=== PATIENT | female | born 1980 | race American Indian/Alaskan Native ===

== ENCOUNTER 2017-01-20 08:46 | Emergency (ER) | payer MEDICAID ==
[2017-01-20 09:10] VITALS: BP 121/77
--- NOTE | 2017-01-20 09:49 | Emergency Department Report ---
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 PT states she noticed a bug bite to her chest this morning and she felt "yucky" so she called her job to alert them of the bug bite and she was told to go to the ED for evaluation. PT denies cp, sob, swelling, n/v. PT states she just wants to get checked and she needs a work note for today. MD Complaint: spider bite Onset/Timin -: Gradual, days(s) Location: chest Severity scale (0 -10): 3 Consistency: constant Improves with: rest Associated Symptoms: denies: chest pain, cough, fever/chills, loss of appetite, malaise, nausea/vomiting, shortness of breath, syncope, weakness Treatments Prior to Arrival: none - Related Data Previous Rx's Medication Instructions Recorded Last Taken Type Cetirizine HCl [ZyrTEC] 10 mg PO DAILY #1 capsule 01/20/17 Unknown Rx Mupirocin [Bactroban 2% CREAM] 1 applicatio TP TID 5 Days 01/20/17 Unknown Rx Allergies Allergy/AdvReac Type Severity Reaction Status Date / Time morphine AdvReac Shortness Verified 04/27/15 18:21 of Breath ED Review of Systems ROS: Stated complaint: INSECT BITE Other details as noted in HPI Comment: All other systems reviewed and negative Constitutional: denies: chills, fever, malaise, weakness Respiratory: denies: shortness of breath, SOB with exertion, SOB at rest Cardiovascular: denies: chest pain Gastrointestinal: denies: abdominal pain, nausea, vomiting Genitourinary: denies: abnormal menses Skin: as per HPI (insect bite to ant chest ). denies: rash, change in color, pruritus ED Past Medical Hx - Past Medical History Previous Medical History?: Yes Additional medical history: lupus. hyperthyroidism - Surgical History Past Surgical History?: Yes Hx Cholecystectomy: Yes - Social History Smoking Status: Never Smoker Substance Use Type: Prescribed - Medications Home Medications: Home Medications Medication Instructions Recorded Confirmed Last Taken Type Cetirizine HCl [ZyrTEC] 10 mg PO DAILY #1 capsule 01/20/17 Unknown Rx Mupirocin [Bactroban 2% CREAM] 1 applicatio TP TID 5 Days 01/20/17 Unknown Rx ED Physical Exam - General Limitations: No Limitations General appearance: alert, in no apparent distress - Head Head exam: Present: atraumatic, normocephalic, normal inspection - Eye Eye exam: Present: normal appearance. Absent: conjunctival injection - ENT ENT exam: Present: normal exam, normal external ear exam - Neck Neck exam: Present: normal inspection, full ROM. Absent: tenderness - Respiratory Respiratory exam: Present: normal lung sounds bilaterally. Absent: respiratory distress, wheezes, chest wall tenderness - Cardiovascular Cardiovascular Exam: Present: tachycardia (mildly tachycardic, pt states she is on propanolol) - GI/Abdominal GI/Abdominal exam: Present: soft. Absent: tenderness, guarding, rebound - Extremities Exam Extremities exam: Present: normal inspection, full ROM, normal capillary refill. Absent: tenderness - Back Exam Back exam: Present: normal inspection, full ROM - Neurological Exam Neurological exam: Present: alert, oriented X3 - Psychiatric Psychiatric exam: Present: normal affect, normal mood - Skin Skin exam: Present: warm, dry, intact, other (pt has two scabes to ant chest. no surrounding erythema, no vesicles. ). Absent: erythema, urticaria, vesicles ED Course Vital Signs 01/20/17 09:06 Temperature 98.7 F Pulse Rate 110 H Respiratory 20 Rate Blood Pressure 121/77 O2 Sat by Pulse 98 Oximetry - Reevaluation(s) Reevaluation #1: 01/20/17 09:51 PT aware of dx and plan of care. Strict return precautions reviewed. PT has no questions at this time. - Pulse Oximetry Interpretation Digit-Finger Initial Pulse Oximetry Readin Actions Taken: none ED Medical Decision Making - Differential Diagnosis insect bite, local reaction Critical Care Time: No Critical care attestation.: If time is entered above; I have spent that time in minutes in the direct care of this critically ill patient, excluding procedure time. ED Disposition Clinical Impression: Insect bite Qualifiers: Encounter type: initial encounter Qualified Code(s): W57.XXXA - Bitten or stung by nonvenomous insect and other nonvenomous arthropods, initial encounter Disposition: DC-01 TO HOME OR SELFCARE Is pt being admited?: No Does the pt Need Aspirin: No Condition: Stable Instructions: Insect Bite or Sting (ED) Additional Instructions: Continue taking your Propranolol Prescriptions: Cetirizine HCl [ZyrTEC] 10 mg PO DAILY #1 capsule Mupirocin [Bactroban 2% CREAM] 1 applicatio TP TID 5 Days Referrals: PRIMARY MD JORGE [Primary Care Provider] - 3-5 Days MAREK MARINO MD [Staff Physician] - 3-5 Days [facility] [Outside] - 3-5 Days Forms: Work/School Release Form(ED) Time of Disposition: 09:53
== END 2017-01-20 10:08 | disposition home or self-care (01) ==
LOC: ED 08:46
DX: S20.369A Insect bite (nonvenomous) of unspecified front wall of thorax, initial encounter (principal); E05.90 Thyrotoxicosis, unspecified without thyrotoxic crisis or storm; Z90.49 Acquired absence of other specified parts of digestive tract; Z88.6 Allergy status to analgesic agent; W57.XXXA Bitten or stung by nonvenomous insect and other nonvenomous arthropods, initial encounter; Y93.89 Activity, other specified; Y92.89 Other specified places as the place of occurrence of the external cause; Y99.8 Other external cause status
CPT/HCPCS: 99282

== ENCOUNTER 2017-04-05 07:43 | Emergency (ER) | payer MEDICAID ==
[2017-04-05 07:52] VITALS: BP 124/78
[2017-04-05] MEDS ORDERED: NACL 0.9% IR ONE (08:37)
[2017-04-05] MEDS ORDERED: NACL 0.9% 500 ML IR ONE (08:40)
[2017-04-05] MEDS ORDERED: TYLENOL/CODEINE PO ONE (08:41)
--- NOTE | 2017-04-05 09:21 | XRay Report ---
CHEST 2 VIEWS INDICATION: Cough. COMPARISON: None similar. FINDINGS: PA and lateral chest radiographs demonstrate normal cardiomediastinal silhouette. Clear lungs. Minimal fluid or thickening along the fissures though noted. Probable cholecystectomy clips. Intact bones. CONCLUSION: No acute disease in the chest. Thank you for the opportunity to participate in this patient's care.
--- NOTE | 2017-04-05 10:43 | Emergency Department Report ---
ED ENT HPI - General Chief complaint: Sore Throat Stated complaint: THROAT/EAR/SWELLING Source: patient Mode of arrival: Ambulatory Limitations: No Limitations - History of Present Illness Initial comments: 36 year old female presents to ED with cough, congestion, sore throat and bilateral ear pain x1 week. 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 patient is neurologically intact and in no acute distress. MD complaint: sore throat, ear pain -: Gradual, week(s) (1) Location: R ear, L ear, throat Severity: mild Quality: aching Consistency: constant Associated Symptoms: cough, pain with swallowing, sore throat. denies: fever - Related Data Previous Rx's Medication Instructions Recorded Last Taken Type Cetirizine HCl [ZyrTEC] 10 mg PO DAILY #1 capsule 01/20/17 Unknown Rx Mupirocin [Bactroban 2% CREAM] 1 applicatio TP TID 5 Days 01/20/17 Unknown Rx Antipyrine/Benzocaine/Glycerin 1 drop AU BID #1 bottle 04/05/17 Unknown Rx [Auralgan Otic] Meloxicam [Mobic] 7.5 mg PO QDAY #5 tablet 04/05/17 Unknown Rx Allergies Allergy/AdvReac Type Severity Reaction Status Date / Time morphine AdvReac Shortness Verified 04/27/15 18:21 of Breath ED Dental HPI - General Chief complaint: Sore Throat Stated complaint: THROAT/EAR/SWELLING Source: patient Mode of arrival: Ambulatory Limitations: No Limitations - Related Data Previous Rx's Medication Instructions Recorded Last Taken Type Cetirizine HCl [ZyrTEC] 10 mg PO DAILY #1 capsule 01/20/17 Unknown Rx Mupirocin [Bactroban 2% CREAM] 1 applicatio TP TID 5 Days 01/20/17 Unknown Rx Antipyrine/Benzocaine/Glycerin 1 drop AU BID #1 bottle 04/05/17 Unknown Rx [Auralgan Otic] Meloxicam [Mobic] 7.5 mg PO QDAY #5 tablet 04/05/17 Unknown Rx Allergies Allergy/AdvReac Type Severity Reaction Status Date / Time morphine AdvReac Shortness Verified 04/27/15 18:21 of Breath ED Review of Systems ROS: Stated complaint: THROAT/EAR/SWELLING Other details as noted in HPI Constitutional: denies: chills, fever Eyes: denies: eye pain, eye discharge, vision change ENT: ear pain, throat pain, congestion Respiratory: cough. denies: shortness of breath, wheezing Cardiovascular: denies: chest pain, palpitations Endocrine: no symptoms reported Gastrointestinal: denies: abdominal pain, nausea, vomiting, diarrhea Genitourinary: denies: urgency, dysuria, discharge Musculoskeletal: denies: back pain, joint swelling, arthralgia Skin: denies: rash, lesions Neurological: denies: headache, weakness, numbness, paresthesias, confusion, abnormal gait, vertigo Psychiatric: denies: anxiety, depression Hematological/Lymphatic: denies: easy bleeding, easy bruising ED Past Medical Hx - Past Medical History Previous Medical History?: Yes Additional medical history: lupus. hyperthyroidism, Fast heart beat - Surgical History Past Surgical History?: Yes Hx Cholecystectomy: Yes - Social History Smoking Status: Never Smoker Substance Use Type: Prescribed - Medications Home Medications: Home Medications Medication Instructions Recorded Confirmed Last Taken Type Cetirizine HCl [ZyrTEC] 10 mg PO DAILY #1 capsule 01/20/17 Unknown Rx Mupirocin [Bactroban 2% CREAM] 1 applicatio TP TID 5 Days 01/20/17 Unknown Rx Antipyrine/Benzocaine/Glycerin 1 drop AU BID #1 bottle 04/05/17 Unknown Rx [Auralgan Otic] Meloxicam [Mobic] 7.5 mg PO QDAY #5 tablet 04/05/17 Unknown Rx ED Physical Exam - General Limitations: No Limitations General appearance: alert, in no apparent distress - Head Head exam: Present: atraumatic, normocephalic - Eye Eye exam: Present: normal appearance, EOMI - ENT ENT exam: Present: normal orophraynx, mucous membranes dry, mucous membranes moist, normal external ear exam, other (bilateral ears have moderate cerumen impaction) - Neck Neck exam: Present: normal inspection, full ROM. Absent: tenderness, lymphadenopathy - Respiratory Respiratory exam: Present: normal lung sounds bilaterally. Absent: respiratory distress, wheezes, rales - Cardiovascular Cardiovascular Exam: Present: regular rate, normal rhythm - GI/Abdominal GI/Abdominal exam: Present: soft, normal bowel sounds. Absent: distended, tenderness, guarding - Extremities Exam Extremities exam: Present: normal inspection, full ROM. Absent: tenderness - Back Exam Back exam: Present: normal inspection, full ROM. Absent: tenderness - Neurological Exam Neurological exam: Present: alert, oriented X3, normal gait - Psychiatric Psychiatric exam: Present: normal affect, normal mood - Skin Skin exam: Present: warm, dry, intact, normal color. Absent: rash ED Course Vital Signs 04/05/17 04/05/17 04/05/17 07:48 08:45 10:14 Temperature 98.6 F Pulse Rate 102 H 88 Respiratory 20 18 18 Rate Blood Pressure 124/78 O2 Sat by Pulse 100 98 Oximetry ED Medical Decision Making - Lab Data Rapid strep negative Strep culture pending Temp Pulse Resp BP Pulse Ox 98.6 F 88 18 124/78 98 04/05/17 07:48 04/05/17 10:14 04/05/17 10:14 04/05/17 07:48 04/05/17 10:14 - Radiology Data Radiology results: report reviewed XR chest 2 view No acute disease in the chest - Medical Decision Making 36 year old female presents to ED with cough, congestion, bilateral ear pain and sore throat x1 week. patient is stable, neurologically intact and in no acute distress. patient has negative rapid strep and negative imaging study of chest. I have irrigated both of patient's ears and obtained moderate amount of cerumen from each ear. Critical care attestation.: If time is entered above; I have spent that time in minutes in the direct care of this critically ill patient, excluding procedure time. ED Disposition Clinical Impression: Viral pharyngitis, Earache Disposition: DC-01 TO HOME OR SELFCARE Is pt being admited?: No Does the pt Need Aspirin: No Condition: Stable Prescriptions: Antipyrine/Benzocaine/Glycerin [Auralgan Otic] 1 drop AU BID #1 bottle Meloxicam [Mobic] 7.5 mg PO QDAY #5 tablet Referrals: PRIMARY CARE, [Primary Care Provider] - 3-5 Days Forms: Work/School Release Form(ED)
== END 2017-04-05 10:26 | disposition home or self-care (01) ==
LOC: ED 07:43
DX: J02.9 Acute pharyngitis, unspecified (principal); H92.03 Otalgia, bilateral; Z88.6 Allergy status to analgesic agent
CPT/HCPCS: 71020; 81025; 87116; 87430; 99284

== ENCOUNTER 2018-11-17 10:51 | Emergency (ER) | payer MEDICAID ==
[2018-11-17] MEDS ORDERED: NACL 0.9% 1000 ML 1,000 ML IV ONE (11:09)
--- NOTE | 2018-11-17 11:23 | Emergency Department Report ---
ED Abdominal Pain HPI - General Chief Complaint: Abdominal Pain Stated Complaint: STOMACH HURTING Time Seen by Provider: 11/17/18 11:22 Source: patient Mode of arrival: Ambulatory Limitations: No Limitations - History of Present Illness Initial Comments: is a 38-year-old female that presents emergency room with complaints of constipation 2 weeks and right flank and sissy lower quadrant pain 4 days. Patient states that it is difficult for her to have a bowel movement. Patient states the pain is a 9 out of 10. Patient states the pain is better with rest and worse with movement. Patient denies dysuria. Patient denies fever or chills. Patient states her last period was last week. Patient denies possibility of . Patient denies being sexually active. Patient states the last time she was sexually active was 5 months ago MD Complaint: abdominal pain, flank pain -: Sudden Location: LLQ, RLQ, R flank Severity scale (0 -10): 9 Quality: stabbing Consistency: constant Improves With: rest Worsens With: movement Associated Symptoms: constipation. denies: nausea, vomiting, diarrhea, fever, dysuria, hematemesis, hematochezia, melena, hematuria, anorexia, syncope - Related Data LMP (females 10-50): last week Previous Rx's Medication Instructions Recorded Last Taken Type Cetirizine HCl [ZyrTEC] 10 mg PO DAILY #1 capsule 01/20/17 Unknown Rx Mupirocin [Bactroban 2% CREAM] 1 applicatio TP TID 5 Days cream 01/20/17 Unknown Rx Antipyrine/Benzocaine/Glycerin 1 drop AU BID #1 bottle 04/05/17 Unknown Rx [Auralgan Otic] Meloxicam [Mobic] 7.5 mg PO QDAY #5 tablet 04/05/17 Unknown Rx Amoxicillin [Amoxicillin TAB] 875 mg PO BID 10 Days #20 tablet 11/17/18 Unknown Rx Docusate Sodium [Colace] 100 mg PO BID PRN #20 capsule 11/17/18 Unknown Rx Allergies Allergy/AdvReac Type Severity Reaction Status Date / Time morphine AdvReac Shortness Verified 04/27/15 18:21 of Breath ED Review of Systems ROS: Stated complaint: STOMACH HURTING Other details as noted in HPI Constitutional: denies: chills, fever Eyes: denies: eye pain, eye discharge, vision change ENT: denies: ear pain, throat pain Respiratory: denies: cough, shortness of breath, wheezing Cardiovascular: denies: chest pain, palpitations Endocrine: no symptoms reported Gastrointestinal: abdominal pain, constipation. denies: nausea, diarrhea Genitourinary: denies: urgency, dysuria, discharge Musculoskeletal: denies: back pain, joint swelling, arthralgia Skin: denies: rash, lesions Neurological: denies: headache, weakness, paresthesias Psychiatric: denies: anxiety, depression Hematological/Lymphatic: denies: easy bleeding, easy bruising ED Past Medical Hx - Past Medical History Previous Medical History?: Yes Additional medical history: lupus. hyperthyroidism, Fast heart beat - Surgical History Past Surgical History?: Yes Hx Cholecystectomy: Yes - Family History Family history: no significant - Social History Smoking Status: Never Smoker Substance Use Type: None - Medications Home Medications: Home Medications Medication Instructions Recorded Confirmed Last Taken Type Cetirizine HCl [ZyrTEC] 10 mg PO DAILY #1 capsule 01/20/17 Unknown Rx Mupirocin [Bactroban 2% CREAM] 1 applicatio TP TID 5 Days cream 01/20/17 Unknown Rx Antipyrine/Benzocaine/Glycerin 1 drop AU BID #1 bottle 04/05/17 Unknown Rx [Auralgan Otic] Meloxicam [Mobic] 7.5 mg PO QDAY #5 tablet 04/05/17 Unknown Rx Amoxicillin [Amoxicillin TAB] 875 mg PO BID 10 Days #20 tablet 11/17/18 Unknown Rx Docusate Sodium [Colace] 100 mg PO BID PRN #20 capsule 11/17/18 Unknown Rx ED Physical Exam - General Limitations: No Limitations General appearance: alert, in no apparent distress - Head Head exam: Present: atraumatic, normocephalic - Eye Eye exam: Present: normal appearance, PERRL Pupils: Present: normal accommodation - ENT ENT exam: Present: mucous membranes moist - Neck Neck exam: Present: normal inspection - Respiratory Respiratory exam: Present: normal lung sounds bilaterally. Absent: respiratory distress - Cardiovascular Cardiovascular Exam: Present: regular rate, normal rhythm. Absent: systolic murmur, diastolic murmur, rubs, gallop - GI/Abdominal GI/Abdominal exam: Present: soft, tenderness (right lower quadrant tenderness), normal bowel sounds - Extremities Exam Extremities exam: Present: normal inspection - Back Exam Back exam: Present: normal inspection - Neurological Exam Neurological exam: Present: alert, oriented X3 - Psychiatric Psychiatric exam: Present: normal affect, normal mood - Skin Skin exam: Present: warm, dry, intact, normal color. Absent: rash ED Course Vital Signs 11/17/18 11/17/18 11:07 18:31 Temperature 98.5 F Pulse Rate 94 H 106 H Respiratory 16 16 Rate Blood Pressure 115/70 Blood Pressure 129/85 [Left] O2 Sat by Pulse 99 99 Oximetry - Reevaluation(s) Reevaluation #1: Discussed results with patient. Patient still states that she is not sexually active and is not possible that she is . Patient will have a ultrasound of the abdomen done. Urine hCG is positive. We'll order a serum hCG. 11/17/18 14:11 Discussed all results with patient. They should voice understanding of results. Discussed all discharge instructions the patient. Patient voiced understanding of all instructions. 11/17/18 17:28 ED Medical Decision Making - Lab Data Result diagrams: 11/17/18 11:20 11/17/18 11:20 - Radiology Data Radiology results: report reviewed PROCEDURE: CT ABDOMEN PELVIS WO CON TECHNIQUE: Noncontrast CT of the abdomen and pelvis was performed. No IV or oral contrast material administered. Axial images and coronal and sagittal reformatted images were obtained. HISTORY: abd pain. COMPARISON: None FINDINGS: The visualized lung bases are clear. The patient is status post cholecystectomy. Within the limitations of a noncontrast exam, the visualized liver, spleen, pancreas, adrenal glands and kidneys demonstrate no significant abnormality. There is no abdominal aortic aneurysm. There is no evidence for intestinal obstruction. The appendix is normal. There is no abnormal fluid collection seen. There is no free intraperitoneal air. There is diverticulosis predominantly involving the sigmoid colon. There is no acute diverticulitis seen. There is a 2.2 cm low-density area in the uterus which could be a cystic area. A gestational sac not excluded. Correlate clinically. This could be some fluid in the endometrium. Bladder is unremarkable. IMPRESSION: Diverticulosis. No acute diverticulitis seen. Low-density structure in the uterus could be a cystic collection. The gestational sac is not excluded. Correlate clinically. This alternatively could be some fluid in the endometrial cavity or may be a necrotic fibroid. PROCEDURE: US OB TRANSVAGINAL and OB ultrasound less than 14 weeks TECHNIQUE: Transabdominal and transvaginal grayscale, color flow and M-mode imaging of the pelvis was performed. HISTORY: us. abd pain COMPARISONS: CT abdomen and pelvis also performed today FINDINGS: TRANSABDOMINAL: The uterus measures 11.7 cm x 6.6 cm x 7.2 cm. There is demonstration of an intrauterine gestational sac with yolk sac and pole. heart rate is measured at 123 bpm with M-mode imaging. Estimated gestational age by measurement of crown-rump length is 6 weeks 1 day. The right ovary measures 2.2 cm x 2.8 cm x 2 cm and contains a possible corpus luteum cyst. The left ovary measures 2.7 cm x 2.4 cm x 1.2 cm and is unremarkable in appearance. TRANSVAGINAL: There is a complex cystic-appearing structure with internal septation in the anterior vaginal wall that measures approximately 1.3 cm x 1 cm x 1.5 cm in size. There is demonstration of an intrauterine gestational sac with yolk sac and pole. Estimated gestational age by measurement of crown-rump length is 6 weeks 4 days. The cervix is closed and unremarkable in appearance. heart rate is measured at 115 bpm by M-mode imaging. There is an approximately 4.2 cm x 9 mm x 5 mm hypoechoic subchorionic collection which may represent a subchorionic hemorrhage. The left ovary measures 2.5 cm x 1.4 cm x 3 cm and is unremarkable in appearance. The right ovary measures 4.1 cm x 3.1 cm x 2.1 cm and contains a possible corpus luteum cyst. No free fluid is demonstrated in the pelvis. IMPRESSION: 1. Demonstration of a single living intrauterine gestation with estimated gestational age of approximately 6 weeks 4 days by measurement of crown-rump length. 2. Possible small subchorionic hemorrhage. 3. Possible corpus luteum cyst right ovary. 4. Complex cystic-appearing structure in the anterior vaginal wall that measures approximately 1.5 cm in size. This is of unclear etiology. - Medical Decision Making Patient is a 38-year-old female that presents emergency room with complaints of abdominal pain and no bowel movements for [address] a [address] done to rule out obstruction. The CT patient had a possible gestational sac within the uterus. Patient originally denied the possibility of due to not being sexually active and having her period recently. Patient hCG positive. Patient also found to have a elevated serum hCG. Ultrasound done. Ultrasound shows a 6 weeks IUP. Patient is to follow-up with [facility] for further evaluation treatment. Subchorionic hemorrhage noted on ultrasound. Patient made aware of this finding and will need serial ultrasounds by [facility]. Patient is stable for discharge. Patient discharged home. - Differential Diagnosis abdominal pain. Obstruction. Constipation. Critical care attestation.: If time is entered above; I have spent that time in minutes in the direct care of this critically ill patient, excluding procedure time. ED Disposition Clinical Impression: Constipation by delayed colonic transit Abdominal pain Qualifiers: Abdominal location: generalized Qualified Code(s): R10.84 - Generalized abdominal pain UTI (urinary tract infection) Qualifiers: Urinary tract infection type: acute cystitis Hematuria presence: with hematuria Qualified Code(s): N30.01 - Acute cystitis with hematuria Qualifiers: Weeks of gestation: less than 8 weeks Qualified Code(s): Z3A.01 - Less than 8 weeks gestation of Disposition: TO HOME OR SELFCARE Is pt being admited?: No Does the pt Need Aspirin: No Condition: Stable Instructions: (ED), Constipation (ED), Urinary Tract Infection in Women (ED), High Fiber Diet (ED), Abdominal Pain (ED) Additional Instructions: Follow-up with primary care in 2-3 days. Patient to return to ER if condition worsens. Patient to follow up with [facility] in 2-3 days. Patient to take meds as directed. Patient increase water. Patient start a vitamin. Prescriptions: Amoxicillin [Amoxicillin TAB] 875 mg PO BID 10 Days #20 tablet Docusate Sodium [Colace] 100 mg PO BID PRN #20 capsule PRN Reason: Constipation Referrals: KEEGAN ZIMMERMAN MD [Primary Care Provider] - 2-3 Days CLINT SCHMITZ MD [Staff Physician] - 2-3 Days Time of Disposition: 17:29
[2018-11-17 11:32] LABS: Basophils % (Auto) 0.5 % (0.0-1.8); Eosinophils % (Auto) 0.8 % (0.0-4.3); Hematocrit 33.8 % (30.3-42.9); Hemoglobin 11.2 gm/dl (10.1-14.3); Lymphocytes # (Auto) 1.6 K/mm3 (1.2-5.4); Lymphocytes % (Auto) 30.2 % (13.4-35.0); Mean Corpuscular HGB Conc 33 % (30-34); Mean Corpuscular Volume 99 fl (79-97); Monocytes # (Auto) 0.4 K/mm3 (0.0-0.8); Monocytes % (Auto) 7.2 % (0.0-7.3); Platelet Count 306 K/mm3 (140-440); Red Blood Count 3.43 M/mm3 (3.65-5.03); Red Cell Distribution Width 11.9 % (13.2-15.2)
[2018-11-17 11:36] LABS: Bacteria,Urine 1+ /HPF (Negative); Bilirubin,Urine NEG (Negative); Blood,Urine NEG (Negative); Color,Urine Yellow (Yellow); Mucus,Urine 1+ /HPF; Protein,Urine <15 mg/dL mg/dL (Negative); Urobilinogen,Urine < 2.0 mg/dL (<2.0)
[2018-11-17 12:27] LABS: Alanine Aminotransferase 11 units/L (7-56); Albumin 4.2 g/dL (3.9-5); BUN/Creatinine Ratio 20; Blood Urea Nitrogen 10 mg/dL (7-17); Calcium 8.9 mg/dL (8.4-10.2); Hemolysis Index 4
--- NOTE | 2018-11-17 13:12 | Cat Scan Report ---
PROCEDURE: CT ABDOMEN PELVIS WO CON TECHNIQUE: Noncontrast CT of the abdomen and pelvis was performed. No IV or oral contrast material ad ministered. Axial images and coronal and sagittal reformatted images were obtained. HISTORY: abd pain. COMPARISON: None FINDINGS: The visualized lung bases are clear. The patient is status post cholecystectomy. Within the limitations of a noncontrast exam, the visualized liver, spleen, pancreas, adrenal glands and kidneys demonstrate no significant abnormality. There is no abdominal aortic aneurysm. There is no evidence for intestinal obstruction. The appendix is normal. There is no abnormal fluid collection seen. There is no free intraperitoneal air. There is diverticulosis predominantly involving the sigmoid colon. There is no acute diverticulitis s een. There is a 2.2 cm low-density area in the uterus which could be a cystic area. A gestational sac not excluded. Correlate clinically. This could be some fluid in the endometrium. Bladder is unremarkable. IMPRESSION: Diverticulosis. No acute diverticulitis seen. Low-density structure in the uterus could be a cystic collection. The gestational sac is not excluded . Correlate clinically. This alternatively could be some fluid in the endometrial cavity or may be a necrotic fibroid. This document is electronically signed by Marian Sotelo MD., November 17 2018 01:10:20 PM ET
[2018-11-17 14:18] LABS: HCG Qualitative,Urine Positive (Negative)
--- NOTE | 2018-11-17 17:23 | Ultrasound Report ---
PROCEDURE: US OB TRANSVAGINAL and OB ultrasound less than 14 weeks TECHNIQUE: Transabdominal and transvaginal grayscale, color flow and M-mode imaging of the pelvis wa s performed. HISTORY: us. abd pain COMPARISONS: CT abdomen and pelvis also performed today FINDINGS: TRANSABDOMINAL: The uterus measures 11.7 cm x 6.6 cm x 7.2 cm. There is demonstration of an intrauterine gestational sac with yolk sac and pole. heart rate is measured at 123 bpm with M-mode imaging. Estimated gestational age by measurement of crown-rump length is 6 weeks 1 day. The right ovary measures 2.2 cm x 2.8 cm x 2 cm and contains a possible corpus luteum cyst. The left ovary measures 2.7 cm x 2.4 cm x 1.2 cm and is unremarkable in appearance. TRANSVAGINAL: There is a complex cystic-appearing structure with internal septation in the anterior vaginal wall th at measures approximately 1.3 cm x 1 cm x 1.5 cm in size. There is demonstration of an intrauterine gestational sac with yolk sac and pole. Estimated gestational age by measurement of crown-rump length is 6 weeks 4 days. The cervix is closed and unremarkable in appearance. heart rate is measured at 115 bpm by M-mode imaging. There is an approximately 4.2 cm x 9 mm x 5 mm hypoechoic subchorionic collection which may represent a subchorionic hemorrhage. The left ovary measures 2.5 cm x 1.4 cm x 3 cm and is unremarkable in appearance. The right ovary measures 4.1 cm x 3.1 cm x 2.1 cm and contains a possible corpus luteum cyst. No free fluid is demonstrated in the pelvis. IMPRESSION: 1. Demonstration of a single living intrauterine gestation with estimated gestational age of approxim ately 6 weeks 4 days by measurement of crown-rump length. 2. Possible small subchorionic hemorrhage. 3. Possible corpus luteum cyst right ovary. 4. Complex cystic-appearing structure in the anterior vaginal wall that measures approximately 1.5 cm in size. This is of unclear etiology. This document is electronically signed by Giovanna Corral MD., November 17 2018 05:22:13 PM ET
[2018-11-17 18:34] VITALS: BP 129/85
== END 2018-11-17 18:35 | disposition home or self-care (01) ==
LOC: ED 10:51
DX: O23.11 Infections of bladder in pregnancy, first trimester (principal); R10.84 Generalized abdominal pain; O99.281 Endocrine, nutritional and metabolic diseases complicating pregnancy, first trimester; E05.90 Thyrotoxicosis, unspecified without thyrotoxic crisis or storm; Z3A.01 Less than 8 weeks gestation of pregnancy; Z90.49 Acquired absence of other specified parts of digestive tract; Z79.899 Other long term (current) drug therapy; Z88.6 Allergy status to analgesic agent
CPT/HCPCS: 36415; 74176; 76801; 76817; 80053; 81001; 81025; 84702; 85025

== ENCOUNTER 2019-06-22 10:33 | Outpatient (CLI) | payer MEDICAID ==
[2019-06-22 11:39] VITALS: BP 122/70
[2019-06-22] MEDS ORDERED: LACTATED RINGERS 1,000 ML IV SCH (12:00)
[2019-06-22 12:11] LABS: Bacteria,Urine 1+ /HPF (Negative); Bilirubin,Urine NEG (Negative); Blood,Urine NEG (Negative); Color,Urine Yellow (Yellow); Mucus,Urine FEW /HPF; Protein,Urine <15 mg/dL mg/dL (Negative)
== END 2019-06-22 11:50 | disposition home or self-care (01) ==
LOC: TRG 10:33
PROVIDERS: ATTEND Obstetrics & Gynecology
DX: O47.1 False labor at or after 37 completed weeks of gestation (principal); Z88.6 Allergy status to analgesic agent
CPT/HCPCS: 81001

== ENCOUNTER 2019-06-27 10:24 | Inpatient (IN) | payer MEDICAID ==
[2019-06-27 11:45] LABS: Hematocrit 32.6 % (30.3-42.9); Hemoglobin 10.6 gm/dl (10.1-14.3); Mean Corpuscular HGB Conc 33 % (30-34); Mean Corpuscular Volume 101 fl (79-97); Platelet Count 252 K/mm3 (140-440); Red Blood Count 3.24 M/mm3 (3.65-5.03)
[2019-06-27 11:50] LABS: Bacteria,Urine 1+ /HPF (Negative); Bilirubin,Urine NEG (Negative); Blood,Urine NEG (Negative); Color,Urine Yellow (Yellow); Mucus,Urine FEW /HPF; Protein,Urine <15 mg/dL mg/dL (Negative); Urobilinogen,Urine < 2.0 mg/dL (<2.0)
[2019-06-27 12:23] LABS: Alanine Aminotransferase 17 units/L (7-56); Uric Acid 4.2 mg/dL (3.5-7.6)
[2019-06-27] MEDS ORDERED: TERBUTALINE 1 MG/1 ML INJ SUB-Q PRN (12:30)
[2019-06-27] MEDS ORDERED: LIDOCAINE (2%) 20 MG/1 ML VIAL 20 ML MDV INFILTRATI NR (12:30)
[2019-06-27] MEDS ORDERED: DINOPROSTONE 10 MG VAG SUPP VG ONE (12:30)
[2019-06-27] MEDS ORDERED: TERBUTALINE 1 MG/1 ML INJ IVP PRN (12:30)
[2019-06-27] MEDS ORDERED: ePHEDrine SULFATE 50 MG/1 ML INJ IV PRN (12:30)
[2019-06-27] MEDS ORDERED: OXYTOCIN 20 UNIT/1000ML DRIP 20 UNITS/1,000 ML BAG IV SCH (13:00)
[2019-06-27] MEDS ORDERED: OXYTOCIN DRIP 30 UNITS/500 ML BAG IV SCH ×2 (13:00)
[2019-06-27] MEDS ORDERED: MINERAL OIL 30 ML ORAL LIQD PO PRN (13:00)
[2019-06-27] MEDS: LACTATED RINGERS 1,000 ML IV SCH (13:39)
--- NOTE | 2019-06-27 17:14 | History and Physical Report ---
History of Present Illness Date of examination: 06/27/19 Date of admission: 06/27/19 10:25 Chief complaint: Elevated BP and headaches History of present illness: Pt is a 39yo BF EDC 07/09/19; EGA 38 2/7 weeks presents to L&D from [facility] for induction of labor due to Preeclampsia. She received late care at [facility] since 21 weeks and co-managed by [facility] for AMA, Lupus, Morbid obesity and Preeclampsia. Her BP's were 150/86,131/91 and 151/89 in the office, and 151/84 in the hospital. However PIH labs were WNL and BPP 8/8 today. Her records are available and GBS is unknown. Past History Past Medical History: thyroid disease, other (lupus; AMA) Past Surgical History: no surgical history Family/Genetic History: none Social history: no significant social history, single - Obstetrical History Expected Date of Delivery: 07/09/19 Actual Gestation: 38 Week(s) 2 Day(s) : 3 Medications and Allergies Allergies Allergy/AdvReac Type Severity Reaction Status Date / Time morphine AdvReac Shortness Verified 04/27/15 18:21 of Breath Home Medications Medication Instructions Recorded Confirmed Last Taken Type Cetirizine HCl [ZyrTEC] 10 mg PO DAILY #1 capsule 01/20/17 06/27/19 Unknown Rx Mupirocin [Bactroban 2% CREAM] 1 applicatio TP TID 5 Days cream 01/20/17 06/27/19 04/28/19 08:00 Rx 1 Antipyrine/Benzocaine/Glycerin 1 drop AU BID #1 bottle 04/05/17 06/27/19 Unknown Rx [Auralgan Otic] Meloxicam [Mobic] 7.5 mg PO QDAY #5 tablet 04/05/17 06/27/19 Unknown Rx Amoxicillin [Amoxicillin TAB] 875 mg PO BID 10 Days #20 tablet 11/17/18 06/27/19 Unknown Rx Docusate Sodium [Colace] 100 mg PO BID PRN #20 capsule 11/17/18 06/27/19 Unknown Rx Aspirin-Omeprazole Dr 81-40 mg 06/27/19 06/26/19 08:00 History Iron 325 MG 06/27/19 06/26/19 08:00 History One Daily Tablet 06/27/19 06/26/19 08:00 History 1 Active Meds: Active Medications Ephedrine Sulfate (Ephedrine Sulfate) 10 mg IV Q2M PRN PRN Reason: Hypotension Fentanyl (Sublimaze) 100 mcg IV Q2H PRN PRN Reason: Labor Pain Oxytocin/Sodium Chloride (Pitocin/Ns 20 Unit/1000ml Drip) 20 units in 1,000 mls @ 125 mls/hr IV DIRECT LYNETTE Oxytocin/Sodium Chloride (Pitocin/Ns 30 Unit/500ml) 30 units in 500 mls @ 1 mls/hr IV TITR LYNETTE; Protocol Oxytocin/Sodium Chloride (Pitocin/Ns 30 Unit/500ml) 30 units in 500 mls @ 4 mls/hr IV TITR LYNETTE; Protocol Lactated Ringer's (Lactated Ringers) 1,000 mls @ 125 mls/hr IV DIRECT LYNETTE Last Admin: 06/27/19 13:39 Dose: 125 mls/hr Documented by: Lidocaine (Xylocaine 2%) 20 ml INFILTRATI ONCE NR Stop: 06/28/19 12:29 Mineral Oil (Mineral Oil) 30 ml PO QHS PRN PRN Reason: Constipation Ondansetron HCl (Zofran) 4 mg IV Q8H PRN PRN Reason: Nausea And Vomiting Terbutaline Sulfate (Brethine) 0.25 mg SUB-Q ONCE PRN PRN Reason: Hyperstimulation/Hypertonicity Terbutaline Sulfate (Brethine) 0.25 mg IVP ONCE PRN PRN Reason: Hyperstimulation/Hypertonicity Review of Systems All systems: negative - Vital Signs Vital signs: Vital Signs Pulse Pulse Ox 111 H 99 06/27/19 10:46 06/27/19 10:46 Temp Pulse Resp BP Pulse Ox 98.1 F 106 H 18 154/87 98 06/27/19 11:37 06/27/19 17:08 06/27/19 11:37 06/27/19 16:43 06/27/19 17:08 - Physical Exam Breasts: Positive: deferred Cardiovascular: Regular rate Abdomen: Positive: normal appearance Genitourinary (Female): Positive: normal external genitalia Uterus: Positive: enlarged Extremities: Positive: normal - Obstetrical FHR: category 1 Uterine Contraction Monitor Mode: External Cervical Dilatation: 0 (per nurse) Cervical Effacement Percentage: 60 (per nurse) station: -2 Uterine Contraction Pattern: Irregular Uterine Tone Measurement Phase: Contraction Uterine Contraction Intensity: Mild Results Result Diagrams: 06/27/19 11:25 06/27/19 11:25 Abnormal lab results 06/27/19 06/27/19 06/27/19 Range/Units 11:15 11:25 11:25 RBC 3.24 L (3.65-5.03) M/mm3 MCV 101 H (79-97) fl MCH 33 H (28-32) pg RDW 13.0 L (13.2-15.2) % Creatinine 0.6 L (0.7-1.2) mg/dL Lactate Dehydrogenase 188 H (91-180) units/L Urine WBC (Auto) 16.0 H (0.0-6.0) /HPF U Epithel Cells (Auto) 30.0 H (0-13.0) /HPF All other labs normal. Ultrasound: report reviewed (BPP 03/16; MATTY 10.15) Assessment and Plan - Patient Problems (1) 38 weeks gestation of Onset Date: 06/27/19 Current Visit: Yes Status: Acute Plan to address problem: A: IUP @ 38 2/7 weeks Preeclampsia Unknown GBS P: Will admit for cervidil/pitocin induction of labor Will begin IV hydralazine for BP management and IV Magnesium Sulfate as indicated IV Ampicillin. (2) Preeclampsia Onset Date: 06/27/19 Current Visit: Yes Status: Acute Qualifiers: Trimester: third trimester Qualified Code(s): O14.93 - Unspecified pre- eclampsia, third trimester
[2019-06-27] MEDS ORDERED: AMPICILLIN/NS 2 GM/100 ML 2 GM/100 ML BAG IV ONE (17:27)
[2019-06-27] MEDS ORDERED: AMPICILLIN/NS 1 GM/50 ML 1 GM/50 ML BAG IV SCH (18:00)
[2019-06-27] MEDS: fentaNYL 100 MCG/2 ML INJ IV PRN ×2 (18:26→23:46)
[2019-06-27] MEDS: ONDANSETRON 4 MG/2 ML INJ IV PRN (23:58)
[2019-06-28] MEDS: BUTORPHANOL 2 MG/1 ML INJ IV PRN ×2 (02:13→07:37)
[2019-06-28] MEDS: LACTATED RINGERS 1,000 ML IV SCH ×4 (04:18→22:02)
[2019-06-28] MEDS: hydrALAZINE 20 MG/1 ML INJ IV PRN (07:29)
--- NOTE | 2019-06-28 08:05 | Progress Note ---
Assessment and Plan - Patient Problems (1) 38 weeks gestation of Onset Date: 06/27/19 Current Visit: Yes Status: Acute Plan to address problem: A: IUP @ 38 3/7 weeks Preeclampsia Unknown GBS P: Continue with cervidil/pitocin induction of labor Will continue with IV hydralazine for BP management and IV Magnesium Sulfate as indicated IV Ampicillin. (2) Preeclampsia Onset Date: 06/27/19 Current Visit: Yes Status: Acute Qualifiers: Trimester: third trimester Qualified Code(s): O14.93 - Unspecified pre- eclampsia, third trimester Subjective - Subjective Date of service: 06/28/19 Principal diagnosis: IUP @ 38 3/7 weeks; Preeclampsia Interval history: Pt is a 39yo BF EDC 07/09/19; EGA 38 3/7 weeks presents to L&D from [facility] for induction of labor due to Preeclampsia. She received late care at [facility] since 21 weeks and co-managed by [facility] for AMA, Lupus, Morbid obesity and Preeclampsia. Her BP's were 150/86,131/91 and 151/89 in the office, and 151/84 in the hospital. However PIH labs were WNL and BPP 8/8. She received cervidil last night and currently on low dose pitocin 4mu/min and erum q 4-5 mins. Patient reports: movement normal, contractions, no new complaints, no loss of fluid, no vaginal bleeding Objective - Vital Signs Vital Signs: Vital Signs - 12hr 06/27/19 06/27/19 06/27/19 21:01 21:43 22:49 Temperature Pulse Rate 104 H 99 H 108 H Respiratory Rate Blood Pressure 137/85 138/78 123/72 Blood Pressure [Left] O2 Sat by Pulse Oximetry 06/27/19 06/27/19 06/28/19 23:43 23:46 00:43 Temperature Pulse Rate 103 H 104 H Respiratory 18 Rate Blood Pressure 141/82 132/71 Blood Pressure [Left] O2 Sat by Pulse Oximetry 06/28/19 06/28/19 06/28/19 01:43 02:50 03:44 Temperature Pulse Rate 103 H 100 H 97 H Respiratory Rate Blood Pressure 134/60 142/75 152/79 Blood Pressure [Left] O2 Sat by Pulse Oximetry 06/28/19 06/28/19 06/28/19 04:00 04:44 05:43 Temperature 98.3 F Pulse Rate 100 H 108 H Respiratory 18 Rate Blood Pressure 142/90 143/81 Blood Pressure [Left] O2 Sat by Pulse Oximetry 06/28/19 06/28/19 06/28/19 06:43 07:18 07:20 Temperature 98.2 F Pulse Rate 102 H 105 H 114 H Respiratory 20 Rate Blood Pressure 142/93 162/84 Blood Pressure 169/91 [Left] O2 Sat by Pulse 99 99 Oximetry 06/28/19 06/28/19 06/28/19 07:22 07:26 07:31 Temperature Pulse Rate 108 H 117 H 104 H Respiratory Rate Blood Pressure 169/91 Blood Pressure [Left] O2 Sat by Pulse 99 98 Oximetry 06/28/19 06/28/19 06/28/19 07:36 07:41 07:46 Temperature Pulse Rate 100 H 118 H 110 H Respiratory Rate Blood Pressure 156/75 Blood Pressure [Left] O2 Sat by Pulse 98 99 98 Oximetry 06/28/19 06/28/19 06/28/19 07:48 07:51 07:56 Temperature Pulse Rate 105 H 108 H 108 H Respiratory Rate Blood Pressure 145/78 Blood Pressure [Left] O2 Sat by Pulse 94 98 98 Oximetry - Exam Uterus: Present: normal FHR: category 1 Uterine Contraction Monitor Mode: External Uterine Contraction Pattern: Regular Uterine Tone Measurement Phase: Contraction Uterine Contraction Intensity: Mild - Labs Labs: Abnormal Labs 06/27/19 06/27/19 06/27/19 11:15 11:25 11:25 RBC 3.24 L MCV 101 H MCH 33 H RDW 13.0 L Creatinine 0.6 L Lactate Dehydrogenase 188 H Urine WBC (Auto) 16.0 H U Epithel Cells (Auto) 30.0 H Laboratory Results - last 24 hr 06/27/19 06/27/19 06/27/19 11:15 11:25 11:25 WBC 7.2 RBC 3.24 L Hgb 10.6 Hct 32.6 MCV 101 H MCH 33 H MCHC 33 RDW 13.0 L Plt Count 252 Creatinine 0.6 L Estimated GFR > 60 Uric Acid 4.2 AST 27 ALT 17 Lactate Dehydrogenase 188 H Urine Color Yellow Urine Turbidity Slightly-cloudy Urine pH 6.0 Ur Specific [place] 1.014 Urine Protein <15 mg/dl Urine Glucose (UA) Neg Urine Ketones Neg Urine Blood Neg Urine Nitrite Neg Urine Bilirubin Neg Urine Urobilinogen < 2.0 Ur Leukocyte Esterase Mod Urine WBC (Auto) 16.0 H Urine RBC (Auto) 24.0 U Epithel Cells (Auto) 30.0 H Urine Bacteria (Auto) 1+ Urine Mucus Few Blood Type Antibody Screen 06/27/19 12:28 WBC RBC Hgb Hct MCV MCH MCHC RDW Plt Count Creatinine Estimated GFR Uric Acid AST ALT Lactate Dehydrogenase Urine Color Urine Turbidity Urine pH Ur Specific [place] Urine Protein Urine Glucose (UA) Urine Ketones Urine Blood Urine Nitrite Urine Bilirubin Urine Urobilinogen Ur Leukocyte Esterase Urine WBC (Auto) Urine RBC (Auto) U Epithel Cells (Auto) Urine Bacteria (Auto) Urine Mucus Blood Type B POSITIVE Antibody Screen Negative
[2019-06-28] MEDS: fentaNYL 100 MCG/2 ML INJ IV PRN ×2 (13:59→17:58)
[2019-06-28] MEDS ORDERED: CALCIUM CARBONATE 500 MG TAB CHEW PO ONE (16:00)
[2019-06-28] MEDS ORDERED: ACETAMINOPHEN 325 MG TAB PO PRN (17:20)
[2019-06-28] MEDS ORDERED: DINOPROSTONE 10 MG VAG SUPP VG ONE (17:49)
[2019-06-28] MEDS: ONDANSETRON 4 MG/2 ML INJ IV PRN (19:07)
[2019-06-28] MEDS ORDERED: ZOLPIDEM 5 MG TAB PO PRN (21:01)
[2019-06-29] MEDS: BUTORPHANOL 2 MG/1 ML INJ IV PRN ×2 (04:45→09:32)
[2019-06-29] MEDS: ONDANSETRON 4 MG/2 ML INJ IV PRN (04:47)
[2019-06-29] MEDS ORDERED: OXYTOCIN DRIP 30 UNITS/500 ML BAG IV SCH (10:00)
[2019-06-29] MEDS: BICITRA ORAL LIQD 30ML PO NR ×2 (10:02→20:38)
[2019-06-29] MEDS: hydrALAZINE 20 MG/1 ML INJ IV PRN ×2 (17:12→17:57)
[2019-06-29] MEDS: fentaNYL 100 MCG/2 ML INJ IV PRN ×2 (17:18→19:18)
[2019-06-29] MEDS ORDERED: FAMOTIDINE 20 MG/2 ML INJ IV ONE (18:56)
[2019-06-29] MEDS ORDERED: BICITRA ORAL LIQD 30ML PO ONE (18:56)
[2019-06-29] MEDS ORDERED: METOCLOPRAMIDE 10 MG/2 ML INJ IV ONE (18:56)
--- NOTE | 2019-06-29 18:56 | Progress Note ---
Assessment and Plan - Patient Problems (1) 38 weeks gestation of Onset Date: 06/27/19 Current Visit: Yes Status: Acute Plan to address problem: A: IUP @ 38 4/7 weeks Preeclampsia Unknown GBS P: Continue with stop pitocin induction of labor and proceed with C Section for Failure to Progress Will continue with IV hydralazine for BP management and IV Magnesium Sulfate as indicated IV Ampicillin. (2) Preeclampsia Onset Date: 06/27/19 Current Visit: Yes Status: Acute Qualifiers: Trimester: third trimester Qualified Code(s): O14.93 - Unspecified pre- eclampsia, third trimester Subjective - Subjective Date of service: 06/29/19 Principal diagnosis: IUP @ 38 4/7 weeks; Preeclampsia Interval history: Pt is a 39yo BF EDC 07/09/19; EGA 38 4/7 weeks presents to L&D from [facility] for induction of labor due to Preeclampsia. She received late care at [facility] since 21 weeks and co-managed by [facility] for AMA, Lupus, Morbid obesity and Preeclampsia. Her BP's were 150/86,131/91 and 151/89 in the office, and 151/84 in the hospital. However PIH labs were WNL and BPP 8/8. She received cervidil followed by pitocin and erum q 3-4 mins. Patient reports: loss of fluid (SROM - clear fluid), movement normal, contractions, no new complaints, no vaginal bleeding Objective - Vital Signs Vital Signs: Vital Signs - 12hr 06/29/19 06/29/19 06/29/19 09:23 09:28 09:32 Pulse Rate 127 H 124 H Respiratory 22 Rate Blood Pressure O2 Sat by Pulse 98 98 Oximetry 06/29/19 06/29/19 06/29/19 09:33 09:38 09:41 Pulse Rate 127 H 120 H 122 H Respiratory Rate Blood Pressure 164/85 O2 Sat by Pulse 97 99 Oximetry 06/29/19 06/29/19 06/29/19 09:43 09:45 09:48 Pulse Rate 120 H 121 H 121 H Respiratory Rate Blood Pressure O2 Sat by Pulse 96 94 96 Oximetry 06/29/19 06/29/19 06/29/19 09:53 09:55 09:58 Pulse Rate 125 H 122 H 119 H Respiratory Rate Blood Pressure O2 Sat by Pulse 96 94 96 Oximetry 06/29/19 06/29/19 06/29/19 10:03 10:07 10:08 Pulse Rate 132 H 117 H 118 H Respiratory Rate Blood Pressure 161/93 O2 Sat by Pulse 97 96 Oximetry 06/29/19 06/29/19 06/29/19 10:10 10:13 10:18 Pulse Rate 114 H 117 H 123 H Respiratory Rate Blood Pressure 149/85 O2 Sat by Pulse 96 96 Oximetry 06/29/19 06/29/19 06/29/19 10:23 10:28 10:33 Pulse Rate 117 H 116 H 124 H Respiratory Rate Blood Pressure O2 Sat by Pulse 97 96 96 Oximetry 06/29/19 06/29/19 06/29/19 10:38 10:43 10:48 Pulse Rate 121 H 124 H 122 H Respiratory Rate Blood Pressure O2 Sat by Pulse 98 98 97 Oximetry 06/29/19 06/29/19 06/29/19 10:53 10:58 11:03 Pulse Rate 129 H 128 H 121 H Respiratory Rate Blood Pressure O2 Sat by Pulse 97 97 96 Oximetry 06/29/19 06/29/19 06/29/19 11:08 11:13 11:18 Pulse Rate 123 H 120 H 128 H Respiratory Rate Blood Pressure O2 Sat by Pulse 97 98 97 Oximetry 06/29/19 06/29/19 06/29/19 11:23 11:25 11:28 Pulse Rate 131 H 121 H 126 H Respiratory Rate Blood Pressure O2 Sat by Pulse 98 93 98 Oximetry 06/29/19 06/29/19 06/29/19 11:33 11:38 11:43 Pulse Rate 127 H 124 H 138 H Respiratory Rate Blood Pressure O2 Sat by Pulse 98 97 98 Oximetry 06/29/19 06/29/19 06/29/19 11:48 11:53 11:58 Pulse Rate 123 H 130 H 125 H Respiratory Rate Blood Pressure O2 Sat by Pulse 98 99 99 Oximetry 06/29/19 06/29/19 06/29/19 12:03 13:30 14:49 Pulse Rate 127 H 120 H 119 H Respiratory Rate Blood Pressure 137/86 O2 Sat by Pulse 99 99 Oximetry 06/29/19 06/29/19 06/29/19 14:54 14:55 14:56 Pulse Rate 121 H 120 H 118 H Respiratory Rate Blood Pressure 163/103 151/95 O2 Sat by Pulse 98 Oximetry 06/29/19 06/29/19 06/29/19 14:59 15:04 15:09 Pulse Rate 124 H 118 H 118 H Respiratory Rate Blood Pressure O2 Sat by Pulse 98 98 99 Oximetry 06/29/19 06/29/19 06/29/19 15:14 15:19 15:24 Pulse Rate 115 H 115 H 117 H Respiratory Rate Blood Pressure O2 Sat by Pulse 98 99 100 Oximetry 06/29/19 06/29/19 06/29/19 15:29 15:34 15:39 Pulse Rate 116 H 118 H 122 H Respiratory Rate Blood Pressure O2 Sat by Pulse 99 98 99 Oximetry 06/29/19 06/29/19 06/29/19 15:44 15:49 15:54 Pulse Rate 119 H 118 H 118 H Respiratory Rate Blood Pressure O2 Sat by Pulse 98 97 98 Oximetry 06/29/19 06/29/19 06/29/19 15:57 15:59 16:04 Pulse Rate 117 H 121 H 120 H Respiratory Rate Blood Pressure 161/90 O2 Sat by Pulse 97 96 Oximetry 06/29/19 06/29/19 06/29/19 16:09 16:14 16:19 Pulse Rate 124 H 121 H 120 H Respiratory Rate Blood Pressure O2 Sat by Pulse 99 99 98 Oximetry 06/29/19 06/29/19 06/29/19 16:24 16:29 16:34 Pulse Rate 125 H 121 H 120 H Respiratory Rate Blood Pressure O2 Sat by Pulse 98 96 97 Oximetry 06/29/19 06/29/19 06/29/19 16:39 16:44 16:49 Pulse Rate 119 H 118 H 124 H Respiratory Rate Blood Pressure O2 Sat by Pulse 97 98 97 Oximetry 06/29/19 06/29/19 06/29/19 16:54 16:56 16:59 Pulse Rate 125 H 122 H 127 H Respiratory Rate Blood Pressure 186/107 O2 Sat by Pulse 99 94 97 Oximetry 06/29/19 06/29/19 06/29/19 17:02 17:04 17:09 Pulse Rate 127 H 125 H 122 H Respiratory Rate Blood Pressure 165/108 O2 Sat by Pulse 100 100 Oximetry 06/29/19 06/29/19 06/29/19 17:12 17:14 17:19 Pulse Rate 125 H 130 H 132 H Respiratory Rate Blood Pressure 165/108 O2 Sat by Pulse 98 99 Oximetry 06/29/19 06/29/19 06/29/19 17:24 17:29 17:34 Pulse Rate 133 H 133 H 131 H Respiratory Rate Blood Pressure O2 Sat by Pulse 98 99 98 Oximetry 06/29/19 06/29/19 06/29/19 17:39 17:44 17:51 Pulse Rate 140 H 141 H 144 H Respiratory Rate Blood Pressure 202/93 O2 Sat by Pulse 99 98 99 Oximetry 06/29/19 06/29/19 06/29/19 17:56 17:57 17:59 Pulse Rate 140 H 138 H 136 H Respiratory Rate Blood Pressure 202/93 190/96 O2 Sat by Pulse 100 Oximetry 06/29/19 06/29/19 06/29/19 18:01 18:06 18:22 Pulse Rate 138 H 145 H 148 H Respiratory Rate Blood Pressure 188/89 O2 Sat by Pulse 100 100 Oximetry 06/29/19 18:26 Pulse Rate 148 H Respiratory Rate Blood Pressure 164/78 O2 Sat by Pulse Oximetry - Exam Abdomen: Present: normal appearance Uterus: Present: normal FHR: category 1 Uterine Contraction Monitor Mode: External Cervical Dilatation: 3.5 Cervical Effacement Percentage: 100 station: -1 Uterine Contraction Pattern: Regular Uterine Tone Measurement Phase: Contraction Uterine Contraction Intensity: Strong/Firm - Labs Labs: Abnormal Labs 06/27/19 06/27/19 06/27/19 11:15 11:25 11:25 RBC 3.24 L MCV 101 H MCH 33 H RDW 13.0 L Creatinine 0.6 L Lactate Dehydrogenase 188 H Urine WBC (Auto) 16.0 H U Epithel Cells (Auto) 30.0 H
[2019-06-29] MEDS ORDERED: ceFAZolin/Water 2 GM/20 ML 2 GM/20 ML SYRINGE IV NR (19:00)
[2019-06-29] MEDS ORDERED: LACTATED RINGERS 1,000 ML IV SCH (19:00)
[2019-06-29] MEDS ORDERED: OXYTOCIN 20 UNIT/1000ML DRIP 20 UNITS/1,000 ML BAG IV SCH ×2 (19:00→22:00)
[2019-06-29] MEDS ORDERED: KETOROLAC 30 MG/1 ML INJ ONE (20:00)
--- NOTE | 2019-06-29 20:11 | Anesthesia Consultation ---
Anesthesia Consult and Med Hx Date of service: 06/29/19 - Airway Anesthetic Teeth Evaluation: Good ROM Head & Neck: Adequate Mental/Hyoid Distance: Adequate Mallampati Class: Class II Intubation Access Assessment: Good - Pulmonary Exam CTA: Yes - Cardiac Exam Cardiac Exam: RRR - Pre-Operative Health Status ASA Pre-Surgery Classification: ASA2, Emergency Proposed Anesthetic Plan: Spinal - Pulmonary Hx Asthma: No - Cardiovascular System Hx Hypertension: Yes (PIH) - Central Nervous System Hx Seizures: No Hx Psychiatric Problems: No - Endocrine Hx Renal Disease: No Hx Hypothyroidism: No Hx Hyperthyroidism: Yes (radiation 2016) - Hematic Hx Anemia: No Hx Sickle Cell Disease: No - Other Systems Hx Alcohol Use: No - Additional Comments Anesthesia Medical History Comments: lupus
--- NOTE | 2019-06-29 20:12 | Anesthesia Day of Surgery ---
Anesthesia Day of Surgery - Day of Surgery Patient Examined: Yes Patient H&P Reviewed: Yes Patient is NPO: Yes Beta Blockers: Yes
[2019-06-29] MEDS ORDERED: ONDANSETRON 4 MG/2 ML INJ IV PRN (20:14)
[2019-06-29] MEDS ORDERED: PROMETHAZINE 25 MG TAB PO PRN (20:14)
[2019-06-29] MEDS ORDERED: NALOXONE 0.4 MG/1 ML INJ IV PRN ×2 (20:14→21:54)
[2019-06-29] MEDS ORDERED: HYDROmorphone 1 MG/1 ML INJ IV PRN (20:14)
[2019-06-29] MEDS ORDERED: PROMETHAZINE 25 MG RECT SUPP PR PRN (20:14)
[2019-06-29] MEDS ORDERED: DEXMEDETOMIDINE 200 MCG/2 ML VIAL IV ONE (20:28)
[2019-06-29] MEDS ORDERED: ONDANSETRON 4 MG/2 ML INJ ONE (20:28)
[2019-06-29] MEDS ORDERED: fentaNYL-BUPIV 2 MCG/ML-0.125% 200 MCG/100 ML BAG EPIDURAL SCH (21:00)
[2019-06-29 21:01] LABS: Basophils % (Auto) 0.8 % (0.0-1.8); Hematocrit 35.9 % (30.3-42.9); Hemoglobin 11.9 gm/dl (10.1-14.3); Lymphocytes # (Auto) 0.8 K/mm3 (1.2-5.4); Lymphocytes % (Auto) 6.2 % (13.4-35.0); Mean Corpuscular HGB Conc 33 % (30-34); Mean Corpuscular Volume 100 fl (79-97); Platelet Count 307 K/mm3 (140-440); Red Cell Distribution Width 13.2 % (13.2-15.2)
[2019-06-29 21:02] LABS: Basophils # (Auto) 0.1 K/mm3 (0.0-0.1); Monocytes # (Auto) 0.4 K/mm3 (0.0-0.8)
[2019-06-29] MEDS ORDERED: ceFAZolin/STERILE WATER 2 GM/20 ML SYRINGE IV ONE (21:10)
[2019-06-29] MEDS ORDERED: PHENYLEPHRINE 10 MG/1 ML INJ SDV ONE (21:12)
[2019-06-29] MEDS ORDERED: WATER FOR IRRIG STERILE 1,500 ML BOTTLE IR ONE (21:20)
[2019-06-29] MEDS ORDERED: SODIUM CHLORIDE 0.9% IRR 1,500 ML BOTTLE IR ONE (21:20)
[2019-06-29] MEDS ORDERED: HYDROmorphone 1 MG/1 ML INJ ONE (21:40)
[2019-06-29] MEDS ORDERED: fentaNYL 100 MCG/2 ML INJ ONE (21:50)
--- NOTE | 2019-06-29 21:52 | Operative Report ---
Operative Report Operative Report: Date of procedure: 06/29/2019 Pre-operative diagnosis: 1. Intrauterine at 38 4/7 weeks 2. Preec lampsia 3. Failed induction of labor Post-operative diagnosis: Same Procedure name(s): Primary low transverse section Surgeon: Jl Obando MD Activity Specialist: None Anesthesia: Spinal anesthesia by Xiang Ramirez CRNA EBL: 800 mL's Findings: A 3174 gm male Apgars 8 at 1 minute 9 at 5 minutes. Normal uterus with edematous lower uterine segment. Normal tubes and ovaries bilaterally. Procedure: After the patient was prepped and draped in usual sterile fashion, and after satisfactory level of spinal anesthesia was obtained, the skin knife was used to make a transverse skin incision. The incision was incised down to layer of the fascia, which was nicked in the midline and extended laterally using the Bovie cautery. The rectus muscles were dissected off the rectus fascia both superiorly and inferiorly. The rectus bellies in the midline, and the peritoneum was entered under direct visualization. The peritoneal incision was extended superiorly and inferiorly. The lower uterine segment was edematous, but a bladder flap was created and the bladder blade was then placed. The uterus was scored in a curvilinear linear fashion, entered in the midline revealing clear amniotic fluid. The 's head was delivered onto the surgical field, and the oropharynx and nasopharynx were bulb suctioned. The rest of the infants body delivered and the cord was doubly clamped and cut and the infant was handed to the awaiting respiratory team. The placenta was manually removed from the uterus, and the uterus removed from its normal anatomical position. After gentle uterine lavage, the incision was inspected and found to be without extensions. It was therefore closed in 2 layers using 0 Vicryl suture in a running interlocking fashion, the second layer imbricating the first. After good hemostasis was achieved, copious amounts or irrigation was performed, and the gutters were suctioned free of blood and blood clots. The uterus was then returned to its normal anatomical position, and the peritoneum was re-approximated using 3-0 Vicryl suture in a running interlocking fashion, and then the rectus muscles were loosely re-approximated using 3-0 Vicryl suture in a [id number] configuration. The fascia was then re- approximated using 0 Vicryl suture in running interlocking fashion. The subcutaneous layer was made hemostatic using Bovie cautery, and the skin edges re-approximated using 4-0 Vicryl suture in a sub-cuticular fashion. Patient tolerated the procedure well was transported to recovery in stable condition.
[2019-06-29] MEDS ORDERED: LANOLIN/ZINC/DIMETHICONE (LANSINOH) 7 GM TP PRN (21:54)
[2019-06-29] MEDS ORDERED: SIMETHICONE 80 MG CHEW TAB PO PRN (21:54)
[2019-06-29] MEDS ORDERED: WITCH HAZEL/ GLYCERIN PAD TP PRN (21:54)
[2019-06-29] MEDS ORDERED: SENNOSIDES 8.6 MG TAB PO PRN (21:54)
[2019-06-29] MEDS ORDERED: D5W/LACTATED RINGERS 1,000 ML IV SCH (22:00)
--- NOTE | 2019-06-29 22:09 | Post Anesthesia Evaluation ---
- Post Anesthesia Evaluation Patient Participated: Yes Airway Patent: Yes Stable Respiratory Function: Yes Nausea/Vomiting: No Temp > 96.8F: Yes Pain Manageable: Yes Adequeate Hydration: Yes Anesthesia Complications: No Block Receding Appropriately: Yes Patient on Ventilator: No
[2019-06-29] MEDS: HYDROmorphone 1 MG/1 ML INJ IV PRN ×2 (23:11→23:38)
[2019-06-30] MEDS: KETOROLAC 30 MG/1 ML INJ IV PRN ×3 (01:08→18:45)
[2019-06-30] MEDS: ceFAZolin/NS 1 GM/50 ML 1 GM/50 ML BAG IV SCH ×2 (03:41→15:55)
[2019-06-30] MEDS: oxyCODONE /ACETAMINOPHEN 5-325MG TAB PO PRN ×2 (10:11→23:24)
[2019-06-30] MEDS: PRENATAL VIT27-FE FUMARATE-FOLIC ACID VIT TAB PO SCH (10:11)
[2019-06-30] MEDS: FERROUS SULFATE 325 MG TAB PO SCH (10:11)
[2019-06-30 11:25] LABS: Hematocrit 35.9 % (30.3-42.9); Hemoglobin 11.6 gm/dl (10.1-14.3)
--- NOTE | 2019-06-30 12:13 | Progress Note ---
Assessment and Plan - Patient Problems (1) 38 weeks gestation of Onset Date: 06/27/19 Current Visit: Yes Status: Resolved (2) Preeclampsia Onset Date: 06/27/19 Current Visit: Yes Status: Resolved Qualifiers: Trimester: third trimester Qualified Code(s): O14.93 - Unspecified pre-eclampsia, third trimester (3) Status post section Onset Date: 06/30/19 Current Visit: Yes Status: Resolved Plan to address problem: A: S/P C Section - POD #1 Doing well Preeclampsia - stable P: Continue RPOC Anticipate discharge in 24-48hrs Subjective - Subjective Date of service: 06/30/19 Principal diagnosis: s/p C Section - POD #1 Interval history: Pt is feeling well without complaints. Bleeding improved. She is tolerating a liquid diet without nausea or vomiting. Patient reports: appetite normal, voiding normally, pain well controlled, no dizzy ambulation, no flatus, no ambulating normally, no nauseated : doing well, nursing well, bottle feeding Objective - Vital Signs Latest vital signs: Vital Signs Temp Pulse Resp BP BP Pulse Ox 06/30/19 08:15 98.2 F 109 H 20 139/97 06/30/19 04:35 98.0 F 119 H 20 130/72 97 06/30/19 03:38 20 06/30/19 01:08 20 06/30/19 00:55 98.1 F 108 H 20 142/79 98 06/30/19 00:08 18 06/29/19 23:45 98.2 F 129 H 22 143/72 96 06/29/19 23:41 18 06/29/19 23:31 125 H 19 141/82 96 06/29/19 23:16 124 H 16 141/75 97 06/29/19 23:02 125 H 21 142/71 96 06/29/19 22:48 99.2 F 135 H 20 143/80 06/29/19 22:32 133 H 20 128/74 97 06/29/19 22:16 139 H 20 128/71 98 06/29/19 22:12 137 H 21 125/67 98 06/29/19 22:10 133 H 20 116/63 98 06/29/19 22:06 99.2 F 138 H 19 103/58 98 06/29/19 20:12 144 H 130/91 06/29/19 19:51 144 H 155/83 06/29/19 19:30 146 H 158/69 06/29/19 19:28 154 H 98 06/29/19 19:22 141 H 170/80 06/29/19 19:06 99.5 F 06/29/19 18:26 148 H 164/78 06/29/19 18:22 148 H 188/89 06/29/19 18:06 145 H 100 06/29/19 18:01 138 H 100 06/29/19 17:59 136 H 190/96 06/29/19 17:57 138 H 202/93 06/29/19 17:56 140 H 100 06/29/19 17:51 144 H 202/93 99 06/29/19 17:44 141 H 98 06/29/19 17:39 140 H 99 06/29/19 17:34 131 H 98 06/29/19 17:29 133 H 99 06/29/19 17:24 133 H 98 06/29/19 17:19 132 H 99 06/29/19 17:14 130 H 98 06/29/19 17:12 125 H 165/108 06/29/19 17:09 122 H 100 06/29/19 17:04 125 H 100 06/29/19 17:02 127 H 165/108 06/29/19 16:59 127 H 97 06/29/19 16:56 122 H 186/107 94 06/29/19 16:54 125 H 99 06/29/19 16:49 124 H 97 06/29/19 16:44 118 H 98 06/29/19 16:39 119 H 97 06/29/19 16:34 120 H 97 06/29/19 16:29 121 H 96 06/29/19 16:24 125 H 98 06/29/19 16:19 120 H 98 06/29/19 16:14 121 H 99 06/29/19 16:09 124 H 99 06/29/19 16:04 120 H 96 06/29/19 15:59 121 H 97 06/29/19 15:57 117 H 161/90 06/29/19 15:54 118 H 98 06/29/19 15:49 118 H 97 06/29/19 15:44 119 H 98 06/29/19 15:39 122 H 99 06/29/19 15:34 118 H 98 06/29/19 15:29 116 H 99 06/29/19 15:24 117 H 100 06/29/19 15:19 115 H 99 06/29/19 15:14 115 H 98 06/29/19 15:09 118 H 99 06/29/19 15:04 118 H 98 06/29/19 14:59 124 H 98 06/29/19 14:56 118 H 151/95 06/29/19 14:55 120 H 163/103 06/29/19 14:54 121 H 98 06/29/19 14:49 119 H 99 06/29/19 13:30 120 H 137/86 Intake and Output 06/29/19 06/30/19 06/30/19 22:59 06:59 14:59 Intake Total 1500 240 120 Output Total 200 600 200 Balance 1300 -360 -80 Intake: IV 1500 Oral 240 120 Output: Urine 200 600 200 Indwelling 150 Indwelling Catheter 300 200 Other: Total, Intake Amount 240 120 Total, Output Amount 300 200 # Voids Void 0 - Exam Breasts: Present: deferred Abdomen: Present: normal appearance, soft Uterus: Present: normal, firm, fundal height below umbilicus Extremities: Present: normal Incision: Present: normal, dry, intact, dressed - Labs Labs: Abnormal lab results 06/29/19 Range/Units 20:30 WBC 12.3 H (4.5-11.0) K/mm3 RBC 3.60 L (3.65-5.03) M/mm3 MCV 100 H (79-97) fl MCH 33 H (28-32) pg Lymph % (Auto) 6.2 L (13.4-35.0) % Lymph # 0.8 L (1.2-5.4) K/mm3 Seg Neutrophils % 90.0 H (40.0-70.0) % Seg Neutrophils # 11.0 H (1.8-7.7) K/mm3 Laboratory Tests 06/27/19 06/27/19 06/27/19 11:15 11:25 11:25 WBC 7.2 RBC 3.24 L Hgb 10.6 Hct 32.6 MCV 101 H MCH 33 H MCHC 33 RDW 13.0 L Plt Count 252 Lymph % (Auto) [place] % (Auto) Eos % (Auto) Baso % (Auto) Lymph # [place] # Eos # Baso # Seg Neutrophils % Seg Neutrophils # Creatinine 0.6 L Estimated GFR > 60 Uric Acid 4.2 AST 27 ALT 17 Lactate Dehydrogenase 188 H Urine Color Yellow Urine Turbidity Slightly-cloudy Urine pH 6.0 Ur Specific [place] 1.014 Urine Protein <15 mg/dl Urine Glucose (UA) Neg Urine Ketones Neg Urine Blood Neg Urine Nitrite Neg Urine Bilirubin Neg Urine Urobilinogen < 2.0 Ur Leukocyte Esterase Mod Urine WBC (Auto) 16.0 H Urine RBC (Auto) 24.0 U Epithel Cells (Auto) 30.0 H Urine Bacteria (Auto) 1+ Urine Mucus Few Blood Type Antibody Screen 06/27/19 06/29/19 06/30/19 12:28 20:30 10:13 WBC 12.3 H RBC 3.60 L Hgb 11.9 11.6 Hct 35.9 35.9 MCV 100 H MCH 33 H MCHC 33 RDW 13.2 Plt Count 307 Lymph % (Auto) 6.2 L [place] % (Auto) 3.0 Eos % (Auto) 0.0 Baso % (Auto) 0.8 Lymph # 0.8 L [place] # 0.4 Eos # 0.0 Baso # 0.1 Seg Neutrophils % 90.0 H Seg Neutrophils # 11.0 H Creatinine Estimated GFR Uric Acid AST ALT Lactate Dehydrogenase Urine Color Urine Turbidity Urine pH Ur Specific [place] Urine Protein Urine Glucose (UA) Urine Ketones Urine Blood Urine Nitrite Urine Bilirubin Urine Urobilinogen Ur Leukocyte Esterase Urine WBC (Auto) Urine RBC (Auto) U Epithel Cells (Auto) Urine Bacteria (Auto) Urine Mucus Blood Type B POSITIVE Antibody Screen Negative
[2019-06-30] MEDS ORDERED: PSEUDOEPHEDRINE 30 MG TAB PO PRN (20:41)
[2019-06-30] MEDS ORDERED: MEASLES, MUMPS & RUBELLA 12,500 UNIT/0.5 ML VACCINE SUB-Q ONE (21:56)
[2019-07-01] MEDS ORDERED: TETANUS,DIPH,PERTUSS(ACELL) VACCINE 0.5 ML SYRINGE IM ONE (06:00)
--- NOTE | 2019-07-01 08:53 | Progress Note ---
Assessment and Plan - Patient Problems (1) 38 weeks gestation of Onset Date: 06/27/19 Current Visit: Yes Status: Resolved (2) Preeclampsia Onset Date: 06/27/19 Current Visit: Yes Status: Resolved Qualifiers: Trimester: third trimester Qualified Code(s): O14.93 - Unspecified pre-eclampsia, third trimester (3) Status post section Onset Date: 06/30/19 Current Visit: Yes Status: Resolved Plan to address problem: A: S/P C Section - POD #2 Doing well Preeclampsia - stable P: May go home today. Subjective - Subjective Date of service: 07/01/19 Principal diagnosis: s/p C Section - POD #2 Interval history: Pt is feeling well without complaints. She is tolerating a reg diet without nausea or vomiting, ambulating and voiding without difficulty, and wants to go home today. Patient reports: appetite normal, voiding normally, pain well controlled, flatus, ambulating normally, no dizzy ambulation, no nauseated : doing well, nursing well, bottle feeding Objective - Vital Signs Latest vital signs: Vital Signs Temp Pulse Resp BP 07/01/19 08:40 98.4 F 96 H 18 137/78 07/01/19 00:24 18 07/01/19 00:00 98.2 F 99 H 18 120/75 06/30/19 23:24 18 06/30/19 20:00 98.6 F 79 18 105/72 06/30/19 19:15 18 06/30/19 16:10 98.7 F 107 H 20 126/77 06/30/19 12:15 98.3 F 101 H 20 137/92 Intake and Output 06/30/19 07/01/19 07/01/19 22:59 06:59 14:59 Intake Total 410 480 480 Output Total 250 Balance 160 480 480 Intake: IV 50 ANCEF/NS 1 GM/50 ML 1 gm 50 In 50 ml @ 100 mls/hr IV Q8H [facility] Rx#:[id number] Oral 120 240 480 Intake, Free Water 240 240 Output: Urine 250 Void 250 Other: Total, Intake Amount 120 240 480 Total, Output Amount 250 # Voids Void 1 1 - Exam Breasts: Present: deferred Abdomen: Present: normal appearance, soft Uterus: Present: normal, firm, fundal height below umbilicus Extremities: Present: normal Incision: Present: normal, dry, intact
--- NOTE | 2019-07-01 09:46 | Discharge Summary ---
Providers - Providers Date of Admission: 06/27/19 10:25 Date of discharge: 07/01/19 Attending physician: ZOIE VENTURA Primary care physician: ZOIE VENTURA Hospitalization Reason for admission: induction of labor, IUP at term Delivery: Procedure: section, primary low transverse Episiotomy: none Laceration: none Incision: normal, dry, intact Other procedures: none complications: none Discharge diagnosis: IUP at term delivered [place] baby: male Hospital course: Pt is a 39yo BF EDC 07/09/19; EGA 38 4/7 weeks who presented to L&D from [facility] for induction of labor due to Preeclampsia. She received late care at [facility] since 21 weeks and co-managed by [facility] for AMA, Lupus, Morbid obesity and Preeclampsia. Her BP's were 150/86,131/91 and 151/89 in the office, and 151/84 in the hospital. However [facility] labs were WNL and BPP 8/8. She received cervidil followed by pitocin but failed to progress in labor. She was therefore delivered by an uncomplicated C Section. By POD #2 she was tolerating a reg diet without nausea or vomiting, ambulating and voiding without difficu lty. She did not require any antihypertensive medication for BP control. She was therefore discharged to home on POD #2 in stable condition, and will follow up in the office in 1 week for BP check. Condition at discharge: Good Disposition: DC-01 TO HOME OR SELFCARE - Discharge Diagnoses (1) 38 weeks gestation of Status: Resolved (2) Preeclampsia Status: Resolved Qualifiers: Trimester: third trimester Qualified Code(s): O14.93 - Unspecified pre- eclampsia, third trimester (3) Status post section Status: Resolved Plan - Discharge Medications Prescriptions: Ferrous Sulfate [Feosol 325 MG tab] 325 mg PO QDAY #60 tablet Ibuprofen [Motrin 800 MG tab] 800 mg PO Q6H PRN #30 tablet PRN Reason: Pain, Mild (1-3) oxyCODONE /ACETAMINOPHEN [Percocet 5/325 mg] 1 tab PO Q6H PRN #30 tablet PRN Reason: Pain, Moderate (4-6) Vit-Fe Fumar-FA [ Vitamin] 1 each PO QDAY #30 tablet - Provider Discharge Summary Activity: routine, no sex for 6 weeks, no heavy lifting 4 weeks, no strenuous exercise Diet: routine Instructions: routine Additional instructions: [] Smoking cessation referral if applicable(refer to patient education folder for contact #) [] Refer to [facility] Booklet Call your doctor immediately for: * Fever > 100.5 * Heavy vaginal bleeding ( >1 pad per hour) * Severe persistent headache * Shortness of breath * Reddened, hot, painful area to leg or breast * Drainage or odor from incision. * Keep incision clean and dry at all times and follow doctor's instructions regarding bathing/showering Follow up in the office in 1 week for BP check - Follow up plan Follow up: ZOIE VENTURA MD [Primary Care Provider] - 7 Days KLAUDAI WAGNER CNM [Advanced Practice Nurse] - 7 Days
[2019-07-01] MEDS: FERROUS SULFATE 325 MG TAB PO SCH (10:58)
[2019-07-01] MEDS: HYDROcodone/ACETAMINOPHEN 5-325 MG TAB PO PRN ×2 (10:59→18:22)
[2019-07-01] MEDS: PRENATAL VIT27-FE FUMARATE-FOLIC ACID VIT TAB PO SCH (10:59)
[2019-07-01] MEDS: IBUPROFEN 800 MG TAB PO PRN (18:20)
[2019-07-01] MEDS: MAGNESIUM HYDROXIDE (MOM) ORAL LIQD UDC PO PRN (22:34)
[2019-07-01] MEDS: oxyCODONE /ACETAMINOPHEN 5-325MG TAB PO PRN (23:04)
[2019-07-02] MEDS: oxyCODONE /ACETAMINOPHEN 5-325MG TAB PO PRN ×2 (06:21→12:17)
[2019-07-02] MEDS: FERROUS SULFATE 325 MG TAB PO SCH (10:19)
[2019-07-02] MEDS: PRENATAL VIT27-FE FUMARATE-FOLIC ACID VIT TAB PO SCH (10:19)
[2019-07-02] MEDS: IBUPROFEN 800 MG TAB PO PRN (10:23)
[2019-07-02] MEDS: MAGNESIUM HYDROXIDE (MOM) ORAL LIQD UDC PO PRN (12:54)
[2019-07-02 15:36] VITALS: BP 150/92
== END 2019-07-02 15:30 | disposition left against medical advice (07) | DRG 766 ==
LOC: TRG 10:24 → LD 10:25 → TRG 10:25 → OB 06-30 00:15
PROVIDERS: ADMIT Obstetrics & Gynecology; ATTEND Obstetrics & Gynecology
PROC: 3E033VJ Introduction of Other Hormone into Peripheral Vein, Percutaneous Approach (ICD-10-PCS; 2019-06-27)
PROC: 10D00Z1 Extraction of Products of Conception, Low, Open Approach (ICD-10-PCS; principal; 2019-06-29)
PROC: 3E0234Z Introduction of Serum, Toxoid and Vaccine into Muscle, Percutaneous Approach (ICD-10-PCS; 2019-06-29)
PROC: 3E0234Z Introduction of Serum, Toxoid and Vaccine into Muscle, Percutaneous Approach (ICD-10-PCS; 2019-06-30)
DX: O14.94 Unspecified pre-eclampsia, complicating childbirth (principal); O99.214 Obesity complicating childbirth; Z3A.38 38 weeks gestation of pregnancy; Z37.0 Single live birth; Z23 Encounter for immunization; Z88.5 Allergy status to narcotic agent; Z79.899 Other long term (current) drug therapy; E66.01 Morbid (severe) obesity due to excess calories; Z53.29 Procedure and treatment not carried out because of patient's decision for other reasons; O99.284 Endocrine, nutritional and metabolic diseases complicating childbirth; E05.90 Thyrotoxicosis, unspecified without thyrotoxic crisis or storm; O61.0 Failed medical induction of labor
CPT/HCPCS: 36415; 59200; 81001; 82565; 83615; 84450; 84460; 84550; 85014; 85018; 85025; 85027; 86850; 86900; 86901; 87086; 90471; 90715; G0378; J0290; J0360; J0595; J0690; J1170; J1885; J2370; J2405; J2590; J2765; J3010; J3490; J7120; J7121